=== PATIENT | female | born 1950 | race Caucasian/White ===

== ENCOUNTER 2023-12-24 10:06 | Outpatient (CLI) | payer OTHER | END 2023-12-24 10:12 | disposition home or self-care (01) | LOC: SONOGRAMA 10:06 | PROVIDERS: ATTEND Pathology Anatomic Pathology & Clinical Pathology | DX: C50.812 Malignant neoplasm of overlapping sites of left female breast (principal); C50.811 Malignant neoplasm of overlapping sites of right female breast; N63.0 Unspecified lump in unspecified breast ==